=== PATIENT | female | born 1955 | race Caucasian/White ===

== ENCOUNTER 2019-01-05 05:52 | Inpatient (IN) ==
[2019-01-02 11:49] LABS: Basophils % 0.5 % (0.0-0.8); Eosinophils # 0.1 10*3/uL (0.0-0.87); Eosinophils % 2.5 % (0.00-10.9); Hematocrit 42.2 VOL% (35.7-47.0); Immature Granulocytes % 0.4 %; Immature Granulocytes Absolute 0.02 #; Lymphocytes # 1.3 10*3/uL (1.4-4.0); Lymphocytes % 23.6 % (21.3-54.2); Mean Corpuscular HGB Conc 33.2 GM/DL (32-36); Mean Corpuscular Hemoglobin 32 PG (27-34); Mean Corpuscular Volume 96.3 FL (87-102); Mean Platelet Volume 9.9 FL (9.6-12.0); Monocytes # 0.5 10*3/uL (0.11-0.8); Monocytes % 9.6 % (1.7-12.7); Neutrophils # 3.5 10*3/uL (1.4-7.4); Neutrophils % 63.4 % (38.7-73.9); Platelet Count 171 T/CUMM (130-400); Red Blood Count 4.38 MC/CUMM (3.8-5.5); Red Cell Distribution Width 13.6 % (9.3-17.3); White Blood Count 5.5 T/CUMM (4-12)
[2019-01-02 12:05] LABS: Calcium 9.4 MG/DL (8.5-10.1); Potassium 4.2 MMOL/L (3.5-5.1)
[2019-01-05] MEDS ORDERED: cefOXitin 2,000 MG in SYRINGE 1 EACH IV ONE (06:00)
[2019-01-05] MEDS ORDERED: BUPIVACAINE 0.5% 50 ML VIAL ONE (06:15)
[2019-01-05] MEDS ORDERED: TISSUE ADHESIVE 1 EACH APPLICATOR TOP ONE (06:15)
[2019-01-05] MEDS ORDERED: LIDOCAINE 1%/EPI INJ 20 ML VIAL ONE (06:15)
[2019-01-05] MEDS ORDERED: BUPIVACAINE LIPOSOMAL 20 ML/266 MG VIAL ONE (06:16)
[2019-01-05] MEDS ORDERED: SCOPOLAMINE 1.5 MG PATCH TRANSDERM STA (06:17)
[2019-01-05] MEDS ORDERED: HYOSCYAMINE 0.125 MG TABLET PO STA (06:17)
[2019-01-05] MEDS ORDERED: HEPARIN 5,000 UNIT/1 ML VIAL SUBCUT STA (06:17)
[2019-01-05] MEDS ORDERED: PANTOPRAZOLE 40 MG VIAL IV STA (06:17)
[2019-01-05] MEDS: LACTATED RINGERS 1,000 ML IV SCH ×3 (06:25→18:27)
[2019-01-05] MEDS ORDERED: HYOSCYAMINE 0.125 MG TABLET ONE (06:27)
[2019-01-05] MEDS ORDERED: PANTOPRAZOLE 40 MG VIAL IV ONE (06:27)
[2019-01-05] MEDS ORDERED: HEPARIN 5,000 UNIT/1 ML VIAL ONE (06:27)
[2019-01-05] MEDS ORDERED: SCOPOLAMINE 1.5 MG PATCH TRANSDERM ONE (06:27)
[2019-01-05] MEDS ORDERED: ACETAMINOPHEN 1,000 MG/100 ML VIAL IV ONE ×2 (06:28→09:09)
[2019-01-05] MEDS ORDERED: ACETAMINOPHEN INJ 1,000 MG in PREMIX 1 EACH IV SCH (06:30)
[2019-01-05] MEDS ORDERED: PROPOFOL 200 MG/20 ML VIAL IV ONE (09:07)
[2019-01-05] MEDS ORDERED: SEVOFLURANE 1 UNIT/15 MINUTE INH ONE (09:07)
[2019-01-05] MEDS ORDERED: ONDANSETRON 4 MG/2 ML VIAL ONE (09:08)
[2019-01-05] MEDS ORDERED: MIDAZOLAM 2 MG/2 ML VIAL ONE (09:08)
[2019-01-05] MEDS ORDERED: ROCURONIUM 100 MG/10 ML VIAL IV ONE (09:09)
[2019-01-05] MEDS ORDERED: ePHEDrine 50 MG/ML AMP ONE (09:09)
[2019-01-05] MEDS ORDERED: GLYCOPYRROLATE 0.4 MG/2 ML VIAL ONE (09:10)
[2019-01-05] MEDS ORDERED: NEOSTIGMINE 10 MG/10 ML VIAL ONE (09:10)
[2019-01-05] MEDS ORDERED: SUGAMMADEX 200 MG/2 ML VIAL IV ONE (09:13)
[2019-01-05] MEDS ORDERED: hydrALAZINE 20 MG/1 ML VIAL IV PRN (10:24)
[2019-01-05] MEDS ORDERED: MORPHINE 4 MG/1 ML VIAL IV PRN (10:24)
[2019-01-05] MEDS ORDERED: HYDROcod/ACETAMIN 7.5-325 MG/15 ML UDCUP PO PRN (10:24)
[2019-01-05] MEDS ORDERED: LACTATED RINGERS 1,000 ML IV SCH (10:30)
[2019-01-05] MEDS ORDERED: LACTATED RINGERS 2,000 ML IV ONE (12:02)
[2019-01-05] MEDS: ceFAZolin 2,000 MG in PREMIX 1 EACH IV SCH (16:37)
[2019-01-05] MEDS: ONDANSETRON 4 MG/2 ML VIAL IV PRN (20:44)
[2019-01-06] MEDS: ceFAZolin 2,000 MG in PREMIX 1 EACH IV SCH (00:30)
[2019-01-06] MEDS: LACTATED RINGERS 1,000 ML IV SCH ×5 (00:33→23:05)
[2019-01-06] MEDS: ONDANSETRON 4 MG/2 ML VIAL IV PRN (04:36)
[2019-01-06 05:14] LABS: Basophils % 0.3 % (0.0-0.8); Eosinophils % 0.2 % (0.00-10.9); Hemoglobin 9.4 GM/DL (12.0-16.0); Immature Granulocytes % 0.3 %; Immature Granulocytes Absolute 0.02 #; Lymphocytes # 1.1 10*3/uL (1.4-4.0); Lymphocytes % 16.2 % (21.3-54.2); Mean Corpuscular HGB Conc 32.4 GM/DL (32-36); Mean Corpuscular Hemoglobin 32 PG (27-34); Mean Platelet Volume 10.1 FL (9.6-12.0); Monocytes # 0.4 10*3/uL (0.11-0.8); Monocytes % 5.9 % (1.7-12.7); Neutrophils % 77.1 % (38.7-73.9); Platelet Count 123 T/CUMM (130-400); Red Blood Count 2.96 MC/CUMM (3.8-5.5); Red Cell Distribution Width 13.5 % (9.3-17.3); White Blood Count 6.5 T/CUMM (4-12)
[2019-01-06 05:42] LABS: Calcium 7.4 MG/DL (8.5-10.1); Osmolality,Calculated 272.5 MOS/KG (273-304); Potassium 3.7 MMOL/L (3.5-5.1)
[2019-01-06] MEDS: PANTOPRAZOLE 40 MG VIAL IV SCH (08:42)
[2019-01-06] MEDS ORDERED: PROMETHAZINE 25 MG/1 ML VIAL IM PRN (09:20)
[2019-01-06] MEDS: SIMETHICONE CHEW 80 MG TABLET PO SCH ×3 (12:17→22:21)
[2019-01-07 04:46] LABS: Basophils % 0.3 % (0.0-0.8); Eosinophils # 0.1 10*3/uL (0.0-0.87); Eosinophils % 1.1 % (0.00-10.9); Hematocrit 33.2 VOL% (35.7-47.0); Hemoglobin 10.7 GM/DL (12.0-16.0); Immature Granulocytes % 0.3 %; Immature Granulocytes Absolute 0.02 #; Lymphocytes # 1.6 10*3/uL (1.4-4.0); Lymphocytes % 24.4 % (21.3-54.2); Mean Corpuscular HGB Conc 32.2 GM/DL (32-36); Mean Corpuscular Hemoglobin 32 PG (27-34); Mean Corpuscular Volume 97.6 FL (87-102); Mean Platelet Volume 10.4 FL (9.6-12.0); Monocytes # 0.6 10*3/uL (0.11-0.8); Monocytes % 8.9 % (1.7-12.7); Neutrophils # 4.2 10*3/uL (1.4-7.4); Platelet Count 135 T/CUMM (130-400); Red Cell Distribution Width 13.5 % (9.3-17.3); White Blood Count 6.5 T/CUMM (4-12)
[2019-01-07] MEDS ORDERED: ENOXAPARIN 40 MG/0.4 ML SYRINGE SUBCUT SCH (09:00)
[2019-01-07] MEDS: LACTATED RINGERS 1,000 ML IV SCH (09:36)
[2019-01-07] MEDS: PANTOPRAZOLE 40 MG VIAL IV SCH (10:45)
[2019-01-07] MEDS: SIMETHICONE CHEW 80 MG TABLET PO SCH (10:49)
[2019-01-07 12:05] VITALS: BP 144/91
== END 2019-01-07 12:00 | disposition home or self-care (01) | DRG 621 ==
LOC: N.SDSINP 05:52 → N.3E 09:46
PROVIDERS: ADMIT Surgery; ATTEND Surgery